=== PATIENT | male | born 1975 | race Hispanic/Latino ===

== ENCOUNTER 2023-09-08 11:41 | Emergency (ER) | payer SELFPAY | END 2023-09-08 14:55 | disposition home or self-care (01) | LOC: ERS 11:41 | DX: S70.352A Superficial foreign body, left thigh, initial encounter (principal); Z59.10 Inadequate housing, unspecified; Z59.6 Low income; Z56.0 Unemployment, unspecified; F17.210 Nicotine dependence, cigarettes, uncomplicated; W29.4XXA Contact with nail gun, initial encounter ==